=== PATIENT | male | born 1990 | race American Indian/Alaskan Native ===

== ENCOUNTER 2021-02-13 19:59 | Emergency (ER) | payer SELFPAY ==
[2021-02-13 21:36] VITALS: BP 153/97
--- NOTE | 2021-02-13 22:41 | XRay Report ---
RIGHT KNEE 3 VIEW(S) INDICATION / CLINICAL INFORMATION: R knee pain COMPARISON: None available. FINDINGS: BONES / JOINT(S): No acute fracture or subluxation. No significant arthritis. SOFT TISSUES: No significant abnormality. ADDITIONAL FINDINGS: None. Signer Name: Paulo Ly MD Signed: 02/13/2021 10:37 PM Workstation Name: [id number]
[2021-02-14] MEDS ORDERED: ACETAMINOPHEN 500 MG TAB PO ONE (00:33)
--- NOTE | 2021-02-14 00:37 | Emergency Department Report ---
ED General Adult HPI - General Chief complaint: Extremity Injury, Lower Stated complaint: RT KNEE INJURY Time Seen by Provider: 02/13/21 23:41 Source: patient Mode of arrival: Ambulatory Limitations: Physical Limitation - History of Present Illness Initial comments: 30-year-old -[place] male patient presents with complaints of right knee pain after a twist injury yesterday. He was playing with his kids when felt a pop. He denies skin changes location for his symptoms. He rates his pain as 8/10 in severity and states it worsens with movement and ambulation. No loss of sensation in the leg or weakness per patient. -: Sudden - Related Data Previous Rx's Medication Instructions Recorded Last Taken Type Naproxen [EC-Naprosyn] 500 mg PO BID PRN #20 tablet. 02/14/21 Unknown Rx methocarbamoL [Methocarbamol] 500 - 1,000 mg PO TID PRN #20 02/14/21 Unknown Rx tablet Allergies Allergy/AdvReac Type Severity Reaction Status Date / Time shrimp Allergy Unknown Uncoded 02/13/21 21:36 ED Review of Systems ROS: Stated complaint: RT KNEE INJURY Other details as noted in HPI Musculoskeletal: arthralgia. denies: joint swelling Skin: denies: change in color Neurological: abnormal gait. denies: numbness, paresthesias ED Past Medical Hx - Past Medical History Previous Medical History?: Yes Hx Heart Attack/AMI: Yes (x1) - Surgical History Past Surgical History?: Yes Additional Surgical History: heart stent x 1 - Medications Home Medications: Home Medications Medication Instructions Recorded Confirmed Last Taken Type Naproxen [EC-Naprosyn] 500 mg PO BID PRN #20 tablet. 02/14/21 Unknown Rx methocarbamoL [Methocarbamol] 500 - 1,000 mg PO TID PRN #20 02/14/21 Unknown Rx tablet ED Physical Exam - General Limitations: Physical Limitation General appearance: alert, in no apparent distress - Head Head exam: Present: atraumatic, normocephalic - Eye Eye exam: Present: normal appearance - Respiratory Respiratory exam: Absent: respiratory distress - Cardiovascular Cardiovascular Exam: Present: regular rate - Expanded Lower Extremity Exam Right Knee exam: Present: full ROM, tenderness (Medial anterior tenderness to palpation noted). Absent: swelling, ecchymosis, deformity, erythema Lower Leg exam: Present: normal inspection Ankle exam: Present: normal inspection Neuro vascular tendon exam: Present: no vascular compromise. Absent: sensory deficit Gait: Positive: antalgic - Neurological Exam Neurological exam: Present: alert, oriented X3 - Psychiatric Psychiatric exam: Present: normal affect, normal mood ED Course Vital Signs 02/13/21 02/14/21 02/14/21 21:34 00:44 01:45 Temperature 98.1 F Pulse Rate 84 82 Respiratory 18 16 16 Rate Blood Pressure 153/97 O2 Sat by Pulse 99 99 Oximetry ED Medical Decision Making - Radiology Data Radiology results: report reviewed Fluoro Time In Minutes: RIGHT KNEE 3 VIEW(S) INDICATION / CLINICAL INFORMATION: R knee pain COMPARISON: None available. FINDINGS: BONES / JOINT(S): No acute fracture or subluxation. No significant arthritis. SOFT TISSUES: No significant abnormality. ADDITIONAL FINDINGS: None. - Medical Decision Making 30-year-old -[place] male patient presents with complaints of right knee pain after a twist injury yesterday. He was playing with his kids when felt a pop. He denies skin changes location for his symptoms. He rates his pain as 8/10 in severity and states it worsens with movement and ambulation. No loss of sensation in the leg or weakness per patient. X-rays negative for any acute bony abnormalities. Will treat for knee sprain with NSAIDs, icing, and compression. Patient to follow-up with orthopedics as needed. Discussed x-ray findings and plan of care in detail with patient and strict return precautions, he verbalizes understanding. Patient is stable for discharge home. Critical care attestation.: If time is entered above; I have spent that time in minutes in the direct care of this critically ill patient, excluding procedure time. ED Disposition Clinical Impression: Right knee injury Disposition: DC-01 TO HOME OR SELFCARE Is pt being admited?: No Condition: Stable Instructions: Knee Sprain, Adult Prescriptions: Naproxen [EC-Naprosyn] 500 mg PO BID PRN #20 tablet. PRN Reason: pain methocarbamoL [Methocarbamol] 500 - 1,000 mg PO TID PRN #20 tablet PRN Reason: muscle spasm/tightness Referrals: LIANA CONTRERAS MD [Staff Physician] - as needed Forms: Work/School Release Form(ED)
[2021-02-14] MEDS ORDERED: IBUPROFEN 800 MG TAB PO STA (01:16)
== END 2021-02-14 01:45 | disposition home or self-care (01) ==
LOC: ED 19:59
DX: S89.91XA Unspecified injury of right lower leg, initial encounter (principal); I25.2 Old myocardial infarction; Z79.899 Other long term (current) drug therapy; Z91.013 Allergy to seafood; Z98.890 Other specified postprocedural states; X58.XXXA Exposure to other specified factors, initial encounter; Y93.89 Activity, other specified; Y92.89 Other specified places as the place of occurrence of the external cause; Y99.8 Other external cause status